=== PATIENT | female | born 2000 | race American Indian/Alaskan Native ===

== ENCOUNTER 2018-08-31 10:37 | Inpatient (IN) | payer OTHER ==
[2018-08-31 14:04] LABS: Bacteria,Urine 2+ /HPF (Negative); Bilirubin,Urine NEG (Negative); Blood,Urine NEG (Negative); Color,Urine Yellow (Yellow); Mucus,Urine FEW /HPF; Protein,Urine <15 mg/dL mg/dL (Negative); Urobilinogen,Urine < 2.0 mg/dL (<2.0)
--- NOTE | 2018-08-31 17:27 | Ultrasound Report ---
Biophysical profile FINDINGS: heart rate is 133 bpm. breathing score is 2 with movement 2 points as well. The tone is also 2 with amniotic fluid volume appearing adequate for score of 2 as well. Total sco re is 8/8. Signer Name: Florentino North MD Signed: 08/31/2018 5:22 PM Workstation Name: [id number]
[2018-08-31 18:42] LABS: Hematocrit 32.7 % (30.3-42.9); Hemoglobin 10.8 gm/dl (10.1-14.3); Mean Corpuscular HGB Conc 33 % (30-34); Mean Corpuscular Volume 87 fl (79-97); Platelet Count 167 K/mm3 (140-440); Red Blood Count 3.76 M/mm3 (3.65-5.03); Red Cell Distribution Width 14.8 % (13.2-15.2)
--- NOTE | 2018-08-31 19:08 | Ultrasound Report ---
US OB limited INDICATION: for wellbeing. COMPARISON: None available. FINDINGS: There is a single intrauterine . position is cephalic. Amniotic fluid index is normal, measuring 8.2 cm. heart rate measures 133 bpm. Signer Name: Pieter Ramos MD Signed: 08/31/2018 7:03 PM Workstation Name: [id number]
--- NOTE | 2018-08-31 19:51 | History and Physical Report ---
History of Present Illness Date of examination: 08/31/18 Chief complaint: Induction of labor History of present illness: Pt is a 17yo BF EDC 08/25/18; EGA 40 6/7 weeks presents to L&D complaining of contractions. She denies ROM or bleeding. She received care at [facility] since 18 weeks and co-managed by [facility] for Obesity. course has been unremarkable except for + Chlamydia treated in . records are available and GBS is Negative. Past History Past Medical History: other (Obesity) Past Surgical History: no surgical history [employer] PV History: chlamydia (treated) Social history: no significant social history, single - Obstetrical History Expected Date of Delivery: 08/25/18 Actual Gestation: 41 Week(s) 0 Day(s) : 2 Medications and Allergies Allergies Allergy/AdvReac Type Severity Reaction Status Date / Time No Known Allergies Allergy Verified 08/31/18 19:59 Home Medications Medication Instructions Recorded Confirmed Last Taken Type Ferrous Sulfate [Iron 325 MG] 325 mg PO BID 08/31/18 08/31/18 1 Week Ago History ~08/24/18 Vitamin 1 tab PO QDAY 08/31/18 08/31/18 1 Week Ago History ~08/24/18 Review of Systems All systems: negative - Vital Signs Vital signs: Vital Signs Temp Pulse Resp BP 98.1 F 85 20 115/57 08/31/18 13:35 08/31/18 13:35 08/31/18 13:35 08/31/18 13:35 Temp Pulse Resp BP Pulse Ox 98.1 F 85 20 115/57 08/31/18 13:35 08/31/18 13:49 08/31/18 13:35 08/31/18 13:49 - Physical Exam Breasts: Positive: deferred Abdomen: Positive: normal appearance Genitourinary (Female): Positive: normal external genitalia Vagina: Positive: normal moisture Uterus: Positive: enlarged Extremities: Positive: normal - Obstetrical FHR: category 1 Uterine Contraction Monitor Mode: External Cervical Dilatation: 1 (per nurse) Cervical Effacement Percentage: 50 (per nurse) station: -3 Uterine Contraction Pattern: Irregular Results Result Diagrams: 08/31/18 18:13 Abnormal lab results 08/31/18 08/31/18 Range/Units 13:24 18:13 WBC 11.4 H (4.5-11.0) K/mm3 Urine WBC (Auto) 21.0 H (0.0-6.0) /HPF U Epithel Cells (Auto) 43.0 H (0-13.0) /HPF All other labs normal. Ultrasound: report reviewed (BPP 10/04; RICHARD 8.2) Assessment and Plan - Patient Problems (1) 41 weeks gestation of Onset Date: 08/31/18 Current Visit: Yes Status: Acute Plan to address problem: A: IUP @ 40 6/7 weeks Obesity P: Admit to L&D for cervidil/pitocin induction of labor Expectant vaginal delivery.
[2018-08-31] MEDS ORDERED: ZOFRAN IV PRN (19:54)
[2018-08-31] MEDS ORDERED: PHENERGAN PO PRN (19:54)
[2018-08-31] MEDS ORDERED: BRETHINE IVP PRN (19:54)
[2018-08-31] MEDS ORDERED: STADOL IV PRN (19:54)
[2018-08-31] MEDS ORDERED: CERVIDIL VG ONE (19:54)
[2018-08-31] MEDS ORDERED: BRETHINE SUB-Q PRN (19:54)
[2018-08-31] MEDS ORDERED: XYLOCAINE 2% INFILTRATI ONE (19:54)
[2018-08-31] MEDS ORDERED: MINERAL OIL PO PRN (19:54)
[2018-08-31] MEDS ORDERED: SUBLIMAZE IV PRN (19:54)
[2018-08-31] MEDS ORDERED: PITOCin/NS 30 UNIT/500ML 30 UNITS/500 ML BAG IV SCH (20:00)
[2018-08-31] MEDS ORDERED: PITOCin/NS 20 UNIT/1000ML DRIP 20 UNITS/1,000 ML BAG IV SCH (20:00)
[2018-08-31] MEDS ORDERED: AMBIEN PO PRN (22:25)
[2018-09-01] MEDS: LACTATED RINGERS 1,000 ML IV SCH ×5 (03:42→16:53)
--- NOTE | 2018-09-01 10:31 | Progress Note ---
Assessment and Plan - Patient Problems (1) 41 weeks gestation of Onset Date: 08/31/18 Current Visit: Yes Status: Acute Plan to address problem: A: IUP @ 41 0/7 weeks Obesity P: Continue with pitocin induction of labor Expectant vaginal delivery. Subjective - Subjective Date of service: 09/01/18 Principal diagnosis: IUP @ 41 0/7 weeks Interval history: Pt is a 17yo BF EDC 08/25/18; EGA 41 0/7 weeks admitted complaining of contractions. She received cervidil last night and currently anthony irregularly. Patient reports: movement normal, contractions, no new complaints, no loss of fluid, no vaginal bleeding Objective - Vital Signs Vital Signs: Vital Signs - 12hr 09/01/18 09/01/18 09/01/18 00:18 00:29 00:34 Temperature Pulse Rate 90 89 86 Respiratory Rate Blood Pressure 124/58 O2 Sat by Pulse 99 98 Oximetry 09/01/18 09/01/18 09/01/18 00:39 00:40 00:47 Temperature 97.7 F Pulse Rate 71 100 H Respiratory 20 Rate Blood Pressure O2 Sat by Pulse 100 98 Oximetry 09/01/18 09/01/18 09/01/18 00:52 00:57 01:02 Temperature Pulse Rate 86 85 90 Respiratory Rate Blood Pressure O2 Sat by Pulse 98 98 98 Oximetry 09/01/18 09/01/18 09/01/18 01:07 01:12 01:17 Temperature Pulse Rate 89 88 82 Respiratory Rate Blood Pressure O2 Sat by Pulse 98 98 99 Oximetry 09/01/18 09/01/18 09/01/18 01:22 01:27 01:32 Temperature Pulse Rate 82 78 88 Respiratory Rate Blood Pressure O2 Sat by Pulse 97 98 98 Oximetry 09/01/18 09/01/18 09/01/18 01:37 01:42 01:47 Temperature Pulse Rate 84 80 85 Respiratory Rate Blood Pressure O2 Sat by Pulse 99 98 97 Oximetry 09/01/18 09/01/18 09/01/18 01:52 01:57 02:02 Temperature Pulse Rate 84 100 H 94 H Respiratory Rate Blood Pressure O2 Sat by Pulse 98 98 97 Oximetry 09/01/18 09/01/18 09/01/18 02:07 02:12 02:20 Temperature Pulse Rate 89 91 H 59 L Respiratory Rate Blood Pressure O2 Sat by Pulse 98 98 70 L Oximetry 09/01/18 09/01/18 09/01/18 02:21 02:26 02:31 Temperature Pulse Rate 67 85 83 Respiratory Rate Blood Pressure O2 Sat by Pulse 85 100 100 Oximetry 09/01/18 09/01/18 09/01/18 02:36 02:41 02:46 Temperature Pulse Rate 83 86 77 Respiratory Rate Blood Pressure O2 Sat by Pulse 100 100 100 Oximetry 09/01/18 09/01/18 09/01/18 02:51 02:56 03:01 Temperature Pulse Rate 79 76 75 Respiratory Rate Blood Pressure O2 Sat by Pulse 100 85 95 Oximetry 09/01/18 09/01/18 09/01/18 03:03 03:06 03:34 Temperature Pulse Rate 80 76 88 Respiratory Rate Blood Pressure 126/59 O2 Sat by Pulse 94 96 Oximetry 09/01/18 09/01/18 09/01/18 03:45 03:46 03:50 Temperature 97.7 F Pulse Rate 90 69 Respiratory 21 Rate Blood Pressure O2 Sat by Pulse 98 99 Oximetry 09/01/18 09/01/18 09/01/18 03:55 04:00 04:05 Temperature Pulse Rate 111 H 81 90 Respiratory Rate Blood Pressure O2 Sat by Pulse 98 100 99 Oximetry 09/01/18 09/01/18 09/01/18 04:10 04:15 04:20 Temperature Pulse Rate 77 76 79 Respiratory Rate Blood Pressure O2 Sat by Pulse 99 99 98 Oximetry 09/01/18 09/01/18 09/01/18 04:25 04:30 04:35 Temperature Pulse Rate 77 76 93 H Respiratory Rate Blood Pressure O2 Sat by Pulse 98 98 98 Oximetry 09/01/18 09/01/18 09/01/18 04:40 04:45 06:56 Temperature Pulse Rate 85 86 79 Respiratory Rate Blood Pressure O2 Sat by Pulse 98 99 99 Oximetry 09/01/18 09/01/18 09/01/18 07:01 07:06 07:11 Temperature Pulse Rate 82 76 77 Respiratory Rate Blood Pressure O2 Sat by Pulse 100 99 99 Oximetry 09/01/18 09/01/18 09/01/18 07:16 07:21 07:26 Temperature Pulse Rate 80 88 87 Respiratory Rate Blood Pressure O2 Sat by Pulse 99 99 99 Oximetry 09/01/18 09/01/18 09/01/18 07:32 07:33 07:38 Temperature Pulse Rate 95 H 86 82 Respiratory Rate Blood Pressure O2 Sat by Pulse 43 L 75 L 99 Oximetry 09/01/18 09/01/18 09/01/18 07:43 07:48 07:53 Temperature Pulse Rate 85 85 94 H Respiratory Rate Blood Pressure O2 Sat by Pulse 100 99 100 Oximetry 09/01/18 09/01/18 09/01/18 08:03 08:05 08:08 Temperature 98.3 F Pulse Rate 95 H 91 H Respiratory 18 Rate Blood Pressure O2 Sat by Pulse 100 100 Oximetry 09/01/18 09/01/18 09/01/18 08:13 08:18 08:23 Temperature Pulse Rate 90 85 84 Respiratory Rate Blood Pressure O2 Sat by Pulse 100 97 97 Oximetry 09/01/18 09/01/18 09/01/18 08:28 08:33 08:38 Temperature Pulse Rate 81 87 91 H Respiratory Rate Blood Pressure O2 Sat by Pulse 98 97 97 Oximetry 09/01/18 09/01/18 09/01/18 08:43 08:48 08:53 Temperature Pulse Rate 77 82 86 Respiratory Rate Blood Pressure O2 Sat by Pulse 99 99 99 Oximetry 09/01/18 09/01/18 09/01/18 08:58 09:03 09:08 Temperature Pulse Rate 81 86 78 Respiratory Rate Blood Pressure O2 Sat by Pulse 100 98 98 Oximetry 09/01/18 09/01/18 09/01/18 09:13 09:18 09:23 Temperature Pulse Rate 79 77 75 Respiratory Rate Blood Pressure O2 Sat by Pulse 98 98 98 Oximetry 09/01/18 09/01/18 09/01/18 09:28 09:33 09:38 Temperature Pulse Rate 91 H 79 81 Respiratory Rate Blood Pressure O2 Sat by Pulse 98 100 99 Oximetry 09/01/18 09/01/18 09/01/18 09:43 09:48 09:53 Temperature Pulse Rate 84 91 H 88 Respiratory Rate Blood Pressure O2 Sat by Pulse 99 100 100 Oximetry 09/01/18 09/01/18 09/01/18 09:58 10:03 10:08 Temperature Pulse Rate 83 83 98 H Respiratory Rate Blood Pressure O2 Sat by Pulse 100 100 99 Oximetry 09/01/18 09/01/18 09/01/18 10:13 10:18 10:26 Temperature Pulse Rate 80 33 L Respiratory Rate Blood Pressure O2 Sat by Pulse 100 88 69 L Oximetry 09/01/18 10:27 Temperature Pulse Rate 79 Respiratory Rate Blood Pressure O2 Sat by Pulse 94 Oximetry - Exam Breasts: deferred Abdomen: Present: normal appearance Uterus: Present: normal FHR: category 1 Uterine Contraction Monitor Mode: External Cervical Dilatation: 2 (per nurse) Cervical Effacement Percentage: 80 (per nurse) station: -3 Uterine Contraction Pattern: Irregular Uterine Tone Measurement Phase: Contraction Uterine Contraction Intensity: Mild - Labs Labs: Abnormal Labs 08/31/18 08/31/18 13:24 18:13 WBC 11.4 H Urine WBC (Auto) 21.0 H U Epithel Cells (Auto) 43.0 H Laboratory Results - last 24 hr 08/31/18 08/31/18 08/31/18 13:24 18:13 18:13 WBC 11.4 H RBC 3.76 Hgb 10.8 Hct 32.7 MCV 87 MCH 29 MCHC 33 RDW 14.8 Plt Count 167 Urine Color Yellow Urine Turbidity Cloudy Urine pH 7.0 Ur Specific [place] 1.018 Urine Protein <15 mg/dl Urine Glucose (UA) Neg Urine Ketones Neg Urine Blood Neg Urine Nitrite Neg Urine Bilirubin Neg Urine Urobilinogen < 2.0 Ur Leukocyte Esterase Lg Urine WBC (Auto) 21.0 H Urine RBC (Auto) 5.0 U Epithel Cells (Auto) 43.0 H Urine Bacteria (Auto) 2+ Urine Mucus Few Urine Yeast (Budding) 1+ Blood Type A POSITIVE Antibody Screen Negative
[2018-09-01] MEDS: PITOCin/NS 30 UNIT/500ML 30 UNITS/500 ML BAG IV SCH ×3 (12:38→15:21)
[2018-09-01] MEDS ORDERED: MARCAINE 0.25% INFILTRATI ONE (16:19)
[2018-09-01] MEDS ORDERED: NARCAN 2 MG/2 ML IV PRN (16:40)
--- NOTE | 2018-09-01 16:40 | Anesthesia Consultation ---
Anesthesia Consult and Med Hx Date of service: 09/01/18 - Airway Anesthetic Teeth Evaluation: Good ROM Head & Neck: Adequate Mental/Hyoid Distance: Adequate Mallampati Class: Class II Intubation Access Assessment: Good - Pulmonary Exam CTA: Yes - Cardiac Exam Cardiac Exam: RRR - Pre-Operative Health Status ASA Pre-Surgery Classification: ASA2 Proposed Anesthetic Plan: Epidural - Pulmonary Hx Asthma: No COPD: No Hx Pneumonia: No - Cardiovascular System Hx Hypertension: No - Central Nervous System Hx Seizures: No Hx Psychiatric Problems: No - Endocrine Hx Renal Disease: No Hx End Stage Renal Disease: No Hx Hypothyroidism: No Hx Hyperthyroidism: No - Hematic Hx Anemia: Yes Hx Sickle Cell Disease: No - Other Systems Hx Alcohol Use: No
[2018-09-01] MEDS ORDERED: fentaNYL-BUPIV 2 MCG/ML-0.125% 200 MCG/100 ML BAG EPIDURAL SCH (17:00)
[2018-09-01] MEDS ORDERED: XYLOCAINE 2% INFILTRATI ONE (22:34)
--- NOTE | 2018-09-01 22:47 | Procedure Note ---
OB Delivery Note - Delivery Date of Delivery: 09/01/18 Surgeon: LIUDMILA FREEDMAN Estimated blood loss: 200cc - Vaginal Delivery presentation: vertex Delivery position: OA Intrapartum events: meconium, mult.variable deceleratio Delivery induction: cervidil Delivery augmentation: rupture of membranes, pitocin Delivery monitor: external FHT, external uterine Route of delivery: Delivery placenta: spontaneous Delivery cord: nuchal cord, 3 umbilical vessels Episiotomy: none Delivery laceration: 2nd degree (perineal) Delivery repair: vicryl Anesthesia: epidural Delivery comments: Infant delivered OA and placed on Mom's chest for [id number] bonding and delayed cord clamping, cut by Dad - Infant A at 1 minute: 7 at 5 minutes: 9 Gender: Male ([id number])
[2018-09-01] MEDS ORDERED: TYLENOL PO PRN (22:52)
[2018-09-01] MEDS ORDERED: TUCKS PAD TP PRN (22:52)
[2018-09-01] MEDS ORDERED: PHENERGAN PO PRN (22:52)
[2018-09-01] MEDS ORDERED: DULCOLAX PR PRN (22:52)
[2018-09-01] MEDS ORDERED: PHENERGAN PR PRN (22:52)
[2018-09-01] MEDS ORDERED: BENADRYL PO PRN (22:52)
[2018-09-01] MEDS ORDERED: LANSINOH TP PRN (22:52)
[2018-09-01] MEDS ORDERED: MILK OF MAGNESIA PO PRN (22:52)
[2018-09-01] MEDS ORDERED: ZOFRAN IV PRN (22:52)
[2018-09-01] MEDS ORDERED: NORCO 5/325 PO PRN (22:52)
[2018-09-01] MEDS ORDERED: SODIUM CHLORIDE FLUSH SYRINGE 10 ML IV PRN (23:00)
[2018-09-01] MEDS ORDERED: PITOCin/NS 20 UNIT/1000ML DRIP 20 UNITS/1,000 ML BAG IV SCH (23:00)
[2018-09-02] MEDS: IBUPROFEN PO SCH ×4 (00:51→23:51)
--- NOTE | 2018-09-02 09:15 | Post Anesthesia Evaluation ---
- Post Anesthesia Evaluation Patient Participated: Yes Airway Patent: Yes Stable Respiratory Function: Yes Nausea/Vomiting: No Temp > 96.8F: Yes Pain Manageable: Yes Adequeate Hydration: Yes Anesthesia Complications: No Block Receding Appropriately: Yes Patient on Ventilator: No
[2018-09-02] MEDS: FEOSOL PO SCH ×2 (10:05→21:34)
[2018-09-02] MEDS: COLACE PO SCH ×2 (10:05→21:35)
[2018-09-02] MEDS: PRENATAL VITAMIN PO SCH (10:05)
--- NOTE | 2018-09-02 10:20 | Progress Note ---
Assessment and Plan - Patient Problems (1) 41 weeks gestation of Onset Date: 08/31/18 Current Visit: Yes Status: Resolved (2) (normal spontaneous vaginal delivery) Onset Date: 09/02/18 Current Visit: Yes Status: Resolved Plan to address problem: A: S/P - PPD #1 Doing well Asymptomatic anemia - stable P: Continue RPPC May go home tomorrow. Subjective - Subjective Date of service: 09/02/18 Principal diagnosis: s/p - PPD #1 Interval history: Pt is feeling well, bleeding improved. Patient reports: appetite normal, voiding normally, pain well controlled, flatus, ambulating normally, no dizzy ambulation, no nauseated : doing well, nursing well, bottle feeding Objective - Vital Signs Latest vital signs: Vital Signs Temp Pulse Resp BP BP Pulse Ox 09/02/18 07:11 98 F 68 18 84/41 09/02/18 06:32 18 09/02/18 04:18 97.9 F 87 18 103/53 100 09/02/18 01:51 18 09/02/18 00:51 18 09/02/18 00:40 98.4 F 18 104/52 09/02/18 00:39 98.4 F 86 18 104/52 100 09/02/18 00:08 91 H 99 09/01/18 23:54 83 109/55 09/01/18 23:26 84 113/51 09/01/18 23:08 94 H 114/64 09/01/18 23:00 99.4 F 20 09/01/18 22:53 103 H 116/58 09/01/18 22:47 104 H 114/66 09/01/18 21:41 160 H 93 09/01/18 21:40 155 H 95 09/01/18 21:35 101 H 80 L 09/01/18 21:30 87 99 09/01/18 21:25 79 100 09/01/18 21:20 78 100 09/01/18 21:15 77 100 09/01/18 21:12 80 107/58 09/01/18 21:10 72 100 09/01/18 21:05 70 100 09/01/18 21:02 97.7 F 22 09/01/18 21:00 92 H 99 09/01/18 20:55 87 100 09/01/18 20:50 73 100 09/01/18 20:45 74 100 09/01/18 20:40 77 100 09/01/18 20:35 72 100 09/01/18 20:30 76 100 09/01/18 20:25 77 100 09/01/18 20:20 71 100 09/01/18 20:15 70 100 09/01/18 20:10 84 100 09/01/18 20:05 87 100 09/01/18 20:00 83 100 09/01/18 19:57 98 H 127/58 09/01/18 19:55 79 100 09/01/18 19:50 113 H 100 09/01/18 19:45 79 100 09/01/18 19:40 65 100 09/01/18 19:35 73 100 09/01/18 19:30 71 100 09/01/18 19:25 88 100 09/01/18 19:22 85 86 09/01/18 19:20 69 100 09/01/18 19:16 88 118/70 09/01/18 19:15 68 100 09/01/18 19:12 66 118/69 09/01/18 19:11 97.4 F L 20 100 09/01/18 19:10 68 100 09/01/18 19:05 76 100 09/01/18 19:00 73 100 09/01/18 18:55 68 100 09/01/18 18:50 69 100 09/01/18 18:47 61 113/55 09/01/18 18:45 66 100 09/01/18 18:42 65 92 09/01/18 18:40 61 99 09/01/18 18:35 74 80 L 09/01/18 18:33 65 88 09/01/18 18:32 67 117/59 09/01/18 18:30 70 87 09/01/18 18:26 81 L 09/01/18 18:25 71 88 09/01/18 18:21 86 74 L 09/01/18 18:20 75 97 09/01/18 18:17 82 105/67 09/01/18 18:16 70 94 09/01/18 18:15 77 100 09/01/18 18:11 75 90 09/01/18 18:10 80 100 09/01/18 18:05 74 99 09/01/18 18:03 77 113/75 09/01/18 18:00 82 100 09/01/18 17:55 80 100 09/01/18 17:54 77 0 L 09/01/18 17:47 94 H 118/59 09/01/18 17:42 93 H 100 09/01/18 17:37 83 98 09/01/18 17:32 85 116/56 98 09/01/18 17:27 93 H 100 09/01/18 17:22 85 100 09/01/18 17:21 97.7 F 18 09/01/18 17:18 70 119/57 09/01/18 17:17 92 H 97 09/01/18 17:12 95 H 100 09/01/18 17:07 108 H 100 09/01/18 17:04 77 118/71 09/01/18 17:02 87 99 09/01/18 16:57 98 H 100 09/01/18 16:56 80 125/70 09/01/18 16:52 104 H 100 09/01/18 16:51 85 127/64 09/01/18 16:47 87 131/66 100 09/01/18 16:42 80 100 09/01/18 16:41 85 117/58 09/01/18 16:40 100 H 115/58 09/01/18 16:38 69 123/59 09/01/18 16:37 77 100 09/01/18 16:36 88 120/57 09/01/18 16:34 69 125/58 09/01/18 16:32 79 126/59 99 09/01/18 16:30 89 137/78 09/01/18 16:28 75 135/77 09/01/18 16:27 74 100 09/01/18 16:26 68 130/68 09/01/18 16:24 70 85 09/01/18 16:23 74 135/65 09/01/18 16:22 85 99 09/01/18 16:06 88 129/88 09/01/18 15:38 83 134/93 09/01/18 15:20 20 09/01/18 15:07 60 118/57 09/01/18 14:49 61 98 09/01/18 14:44 90 95 09/01/18 14:39 77 96 09/01/18 14:36 64 121/61 09/01/18 14:34 68 97 09/01/18 14:29 66 95 09/01/18 14:24 62 97 09/01/18 14:20 20 09/01/18 14:19 60 95 09/01/18 14:16 60 94 09/01/18 14:14 59 L 98 09/01/18 14:10 98.3 F 20 09/01/18 14:08 75 134/57 09/01/18 14:02 75 143/80 09/01/18 13:13 98 H 80 L 09/01/18 13:11 77 100 09/01/18 13:09 98.4 F 09/01/18 13:07 88 100 09/01/18 13:02 68 99 09/01/18 12:57 72 104/51 100 09/01/18 12:52 85 99 09/01/18 12:46 79 100 09/01/18 12:43 74 115/49 86 09/01/18 12:42 76 100 09/01/18 12:37 72 100 09/01/18 12:32 87 79 L 09/01/18 12:31 86 100 09/01/18 12:27 77 123/72 99 09/01/18 12:26 93 09/01/18 10:45 81 111/58 09/01/18 10:42 73 98 09/01/18 10:40 78 93 09/01/18 10:37 94 H 97 09/01/18 10:33 57 L 09/01/18 10:32 87 93 09/01/18 10:27 79 94 09/01/18 10:26 69 L 09/01/18 10:18 33 L 88 Intake and Output 09/01/18 09/02/18 09/02/18 22:59 06:59 14:59 Intake Total 1455.817 360 480 Output Total 500 Balance 955.817 360 480 Intake: IV 1455.817 Lactated Ringers 1,000 ml 1418.75 @ 125 mls/hr IV DIRECT BHAVANI Rx#:[id number] PITOCin/NS 30 UNIT/500ML 37.067 30 units In 500 ml @ 1 MILLIUNITS/MIN 1 mls/hr IV TITR BHAVANI Rx#:[id number] Oral 480 Intake, Free Water 360 Output: Urine 500 Indwelling Catheter 500 Other: Total, Intake Amount 480 Total, Output Amount 100 # Voids Void 3 Estimated Blood Loss 200 - Exam Abdomen: Present: normal appearance, soft Uterus: Present: normal, firm, fundal height below umbilicus Extremities: Present: normal - Labs Labs: Laboratory Tests 08/31/18 08/31/18 08/31/18 13:24 18:13 18:13 WBC 11.4 H RBC 3.76 Hgb 10.8 Hct 32.7 MCV 87 MCH 29 MCHC 33 RDW 14.8 Plt Count 167 Urine Color Yellow Urine Turbidity Cloudy Urine pH 7.0 Ur Specific [place] 1.018 Urine Protein <15 mg/dl Urine Glucose (UA) Neg Urine Ketones Neg Urine Blood Neg Urine Nitrite Neg Urine Bilirubin Neg Urine Urobilinogen < 2.0 Ur Leukocyte Esterase Lg Urine WBC (Auto) 21.0 H Urine RBC (Auto) 5.0 U Epithel Cells (Auto) 43.0 H Urine Bacteria (Auto) 2+ Urine Mucus Few Urine Yeast (Budding) 1+ RPR Blood Type A POSITIVE Antibody Screen Negative 08/31/18 09/02/18 18:13 13:07 WBC RBC Hgb 9.6 L Hct 28.6 L MCV MCH MCHC RDW Plt Count Urine Color Urine Turbidity Urine pH Ur Specific [place] Urine Protein Urine Glucose (UA) Urine Ketones Urine Blood Urine Nitrite Urine Bilirubin Urine Urobilinogen Ur Leukocyte Esterase Urine WBC (Auto) Urine RBC (Auto) U Epithel Cells (Auto) Urine Bacteria (Auto) Urine Mucus Urine Yeast (Budding) RPR Nonreactive Blood Type Antibody Screen
[2018-09-02 13:41] LABS: Hematocrit 28.6 % (30.3-42.9); Hemoglobin 9.6 gm/dl (10.1-14.3)
[2018-09-02] MEDS ORDERED: M-M-R II VACCINE SUB-Q ONE (22:52)
[2018-09-03] MEDS: IBUPROFEN PO SCH ×2 (05:59→12:27)
[2018-09-03] MEDS ORDERED: BOOSTRIX IM ONE (06:00)
[2018-09-03] MEDS: COLACE PO SCH (10:23)
[2018-09-03] MEDS: PRENATAL VITAMIN PO SCH (10:23)
[2018-09-03] MEDS: FEOSOL PO SCH (10:23)
--- NOTE | 2018-09-03 10:28 | Discharge Summary ---
Providers - Providers Date of Admission: 08/31/18 20:27 Date of discharge: 09/03/18 Attending physician: LIUDMILA FREEDMAN Primary care physician: LIUDMILA FREEDMAN Hospitalization Reason for admission: induction of labor, IUP at term, other (Obesity) Delivery: Episiotomy: none Laceration: 2nd degree Incision: normal Other procedures: none complications: none Discharge diagnosis: IUP at term delivered [place] baby: male Hospital course: Unremarkable. Condition at discharge: Good Disposition: DC-01 TO HOME OR SELFCARE - Discharge Diagnoses (1) 41 weeks gestation of Status: Resolved (2) (normal spontaneous vaginal delivery) Status: Resolved Plan - Discharge Medications Prescriptions: Ferrous Sulfate [Feosol 325 MG tab] 325 mg PO BID #60 tablet Ibuprofen [Motrin 600 MG tab] 600 mg PO Q6HR #30 tablet Vit-Fe Fumar-FA [ Vitamin] 1 each PO QDAY #30 tablet - Provider Discharge Summary Activity: routine, no sex for 6 weeks, no heavy lifting 4 weeks, no strenuous exercise Diet: routine Instructions: routine Additional instructions: [] Smoking cessation referral if applicable(refer to patient education folder for contact #) [] Refer to [facility]'s [facility] Booklet Call your doctor immediately for: * Fever > 100.5 * Heavy vaginal bleeding ( >1 pad per hour) * Severe persistent headache * Shortness of breath * Reddened, hot, painful area to leg or breast * Drainage or odor from incision. * Keep incision clean and dry at all times and follow doctor's instructions regarding bathing/showering - Follow up plan Follow up: LIUDMILA FREEDMAN MD [Primary Care Provider] - 6 Weeks
[2018-09-03 14:27] VITALS: BP 108/55
== END 2018-09-03 14:00 | disposition home or self-care (01) | DRG 775 ==
LOC: TRG 10:37 → LD 20:27 → OB 09-02 00:37
PROVIDERS: ADMIT Obstetrics & Gynecology; ATTEND Obstetrics & Gynecology
PROC: 10E0XZZ Delivery of Products of Conception, External Approach (ICD-10-PCS; principal; 2018-09-01)
PROC: 0KQM0ZZ Repair Perineum Muscle, Open Approach (ICD-10-PCS; 2018-09-01)
PROC: 3E0P7VZ Introduction of Hormone into Female Reproductive, Via Natural or Artificial Opening (ICD-10-PCS; 2018-09-01)
PROC: 3E0R3BZ Introduction of Anesthetic Agent into Spinal Canal, Percutaneous Approach (ICD-10-PCS; 2018-09-01)
PROC: 00HU33Z Insertion of Infusion Device into Spinal Canal, Percutaneous Approach (ICD-10-PCS; 2018-09-01)
PROC: 3E0234Z Introduction of Serum, Toxoid and Vaccine into Muscle, Percutaneous Approach (ICD-10-PCS; 2018-09-02)
DX: O76 Abnormality in fetal heart rate and rhythm complicating labor and delivery (principal); O99.214 Obesity complicating childbirth; E66.9 Obesity, unspecified; O70.1 Second degree perineal laceration during delivery; O99.02 Anemia complicating childbirth; O77.0 Labor and delivery complicated by meconium in amniotic fluid; O69.81X0 Labor and delivery complicated by cord around neck, without compression, not applicable or unspecified; Z37.9 Outcome of delivery, unspecified; Z3A.41 41 weeks gestation of pregnancy; Z37.0 Single live birth; Z79.899 Other long term (current) drug therapy; Z23 Encounter for immunization
CPT/HCPCS: 36415; 59200; 76815; 76819; 81001; 85014; 85018; 85027; 86592; 86850; 86900; 86901; 87086; G0378; A6250; J0595; J2405; J2590; J3010; J7120